=== PATIENT | female | born 1970 | race Caucasian/White ===

== ENCOUNTER → 2017-10-11 | Outpatient (CLI) | payer OTHER ==
--- NOTE | 2017-10-11 13:01 | Diagnostic Imaging Report ---
PROCEDURE: Frontal and lateral views of the chest. COMPARISON: 10/07/14 INDICATIONS: breast cancer FINDINGS: Lines/tubes: None. Lungs: The lungs are well inflated and clear. There is no evidence of pneumonia or pulmonary edema. Pleura: There is no pleural effusion or pneumothorax. Heart and mediastinum: The heart and the mediastinum are normal. Bones: No acute bony abnormality. Left axillary surgical clips. IMPRESSION: 1. No acute cardiopulmonary disease. Dictated by: Farhad Fabian M.D. on 10/11/2017 at 13:02 Electronically approved by: Farhad Fabina M.D. on 10/11/2017 at 13:02
== END ==
LOC: RAD 12:07
PROVIDERS: ATTEND Obstetrics & Gynecology
DX: Z85.3 Personal history of malignant neoplasm of breast (principal)
CPT/HCPCS: 71046